=== PATIENT | male | born 2005 | race Caucasian/White ===

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

== ENCOUNTER 2025-02-23 20:00 | Emergency (ER) | payer OTHER ==
[~2025-02-23] VITALS: Ht 193 cm; Wt 127.0 kg
[2025-02-24] MEDS ORDERED: PANTOPRAZOLE SODIUM 40 MG/VIAL VIAL IV STA (00:27)
[2025-02-24] MEDS ORDERED: PROMETHAZINE HCL 50 MG/ML AMPUL IV STA (00:27)
[2025-02-24] MEDS ORDERED: PROMETHAZINE HCL 50 MG/ML AMPUL IM ONE ×2 (01:12→02:30)
[2025-02-24 02:02] LABS: BASO % 0.3 % (0.1-1.2); EOS # 0.06 (0.04-0.54); EOS % 1.0 % (0.7-7.0); LYMPH # 0.96 (1.18-3.74); LYMPH % 15.9 % (19.3-53.1); MEAN PLATELET VOLUME 10.50 fl (9.4-12.4); MONO # 0.65 (0.24-0.82); MONO % 10.7 % (4.7-12.5); NEUT # 4.34 (1.56-6.13); NEUT % 71.8 % (34.0-71.1); RED CELL DISTRIBUTION WIDTH 12.8 % (11.6-14.4)
[2025-02-24 02:08] LABS: BUN CREA RATIO 13.0 (7.0-25.0); CREATININE SERUM 0.87 mg/dL (0.70-1.30); GFR 110.77; GLUCOSE FASTING 100.0 mg/dL (65-100); OSMOLALITY SERUM 284.0 MOSM/KG (275-295)
[2025-02-24 02:33] LABS: URINE APPEARANCE Clear; URINE BILIRRUBIN Small (NEGATIVE); URINE BLOOD Negative; URINE COLOR Dark Yellow; URINE GLUCOSE Negative (NEGATIVE); URINE KETONE Trace (NEGATIVE); URINE LEUKOCYTE Negative; URINE NITRATE Negative; URINE PROTEIN 30 (NEGATIVE); URINE UROBILINOGEN 1.0 E.U./dl
[2025-02-24 02:35] LABS: INR 1.09
[2025-02-24 02:37] LABS: URINE BACTERIA 21.7 uL (0.0-1933); URINE EPITHELIAL CELLS 14.4 uL (0.0-38.8); URINE RBC 7.9 uL (0.0-20.8); URINE WBC 15.1 uL (0.0-23.2)
[2025-02-24 02:43] LABS: URINE CAST 0.28 uL (0.0-1.40)
[2025-02-24 02:57] LABS: COVID-19 AG NEGATIVE (NEGATIVE)
== END 2025-02-24 05:59 | disposition home or self-care (01) ==
LOC: ER 20:01
PROVIDERS: General Practice
DX: R11.2 Nausea with vomiting, unspecified (principal); K21.9 Gastro-esophageal reflux disease without esophagitis; R10.9 Unspecified abdominal pain; Z20.822 Contact with and (suspected) exposure to COVID-19